=== PATIENT | male | born 1995 | race Caucasian/White ===

== ENCOUNTER 2017-07-16 09:23 | Emergency (ER) | payer MEDICAID ==
[~2017-07-16] VITALS: Ht 193 cm; Wt 86.0 kg
[~2017-07-16 09:23] MED LIST: HYDR-569 PO; NO HOME MEDS
[2017-07-16] MEDS ORDERED: AZIT-63 PO (10:17)
[2017-07-16 10:32] VITALS: BP 132/75
== END 2017-07-16 10:34 | disposition home or self-care (01) ==
LOC: ER 09:24
DX: J40 Bronchitis, not specified as acute or chronic (principal); F17.210 Nicotine dependence, cigarettes, uncomplicated; F12.90 Cannabis use, unspecified, uncomplicated; F15.90 Other stimulant use, unspecified, uncomplicated
CPT/HCPCS: 71046; 99284

== ENCOUNTER 2017-10-08 09:56 | Emergency (ER) | payer MEDICAID ==
[~2017-10-08] VITALS: Ht 188 cm; Wt 79.0 kg
[2017-10-08 11:30] LABS: BASOPHILS % (AUTO) 0.2 % (0-1); EOSINOPHILS # (AUTO) 0.4 X10'3 (0-0.9); EOSINOPHILS % (AUTO) 2.3 % (0-6); HEMOGLOBIN 14.6 g/dl (14.0-17.9); LYMPHOCYTES # (AUTO) 1.6 X10'3 (1.1-4.8); LYMPHOCYTES % (AUTO) 9.2 % (21-51); MEAN CORPUSCULAR HGB CONC 34.8 % (33.0-36.5); MEAN CORPUSCULAR VOLUME 86.2 FL (78-98); MEAN PLATELET VOLUME 8.9 FL (7.4-10.4); MONOCYTES # (AUTO) 1.3 X10'3 (0-0.9); MONOCYTES % (AUTO) 7.1 % (2-12); NEUTROPHILS # (AUTO) 14.6 X10'3 (1.8-7.7); NEUTROPHILS % (AUTO) 81.2 % (42-75); PLATELET COUNT 253 X10'3 (140-440); RED BLOOD COUNT 4.88 X10'6 (4.70-6.10); RED CELL DISTRIBUTION WIDTH 13.5 % (11.5-14.5)
[2017-10-08 11:36] LABS: CLARITY,URINE CLEAR (Clear); COLOR,URINE YELLOW (Yellow); GLUCOSE, URINE NEGATIVE (Neg); KETONES,URINE NEGATIVE (Neg); LEUKOCYTE ESTERASE ,URINE NEGATIVE (Neg); NITRITES, URINE NEGATIVE (Neg); OCCULT BLOOD,URINE NEGATIVE (Neg); PROTEIN,URINE NEGATIVE (Neg); UROBILINOGEN,URINE 0.2 E.U/dL (0.2-1.0)
[2017-10-08 11:42] LABS: UA COLLECTION TYPE CLN CATCH MIDSTREAM
[2017-10-08 11:44] LABS: ALANINE AMINOTRANSFERASE 13 U/L (12-78); ALBUMIN 3.6 G/DL (3.4-5.0); ALBUMIN/GLOBULIN RATIO 0.9 (1.1-1.5); ALKALINE PHOSPHATASE 88 IU/L (20-180); ANION GAP 9 (8-16); ASPARTATE AMINO TRANSFERASE 13 U/L (10-37); BILIRUBIN,TOTAL 0.3 MG/DL (0.1-1.0); BLOOD UREA NITROGEN 19 MG/DL (7-18); BUN/CREATININE RATIO 24.4 (5.4-32.0); CALCIUM 9.5 MG/DL (8.5-10.1); CHLORIDE 104 MMOL/L (99-107); CREATININE 0.78 MG/DL (0.60-1.10); GLUCOSE 103 MG/DL (70-104); POTASSIUM 4.9 MMOL/L (3.5-5.1); SODIUM 140 MMOL/L (135-145); TOTAL PROTEIN 7.7 G/DL (6.4-8.2); eGFR > 90 ML/MIN
[2017-10-08 13:33] LABS: URINE AMPHETAMINE SCREEN NEGATIVE (Neg); URINE BARBITUATE SCREEN NEGATIVE (Neg); URINE BENZODIAZEPINES SCREEN NEGATIVE (Neg); URINE CANNABINOID SCREEN POSITIVE (Neg); URINE COCAINE SCREEN NEGATIVE (Neg); URINE METHADONE SCREEN NEGATIVE (Neg); URINE OPIATE SCREEN NEGATIVE (Neg); URINE PHENCYCLIDINE SCREEN NEGATIVE (Neg)
[2017-10-08 14:13] VITALS: BP 122/66
[2017-10-08 14:35] LABS: MONOTEST NEGATIVE (Neg)
== END 2017-10-08 14:16 | disposition home or self-care (01) ==
LOC: ER 09:56
DX: D72.829 Elevated white blood cell count, unspecified (principal); M54.2 Cervicalgia; F17.200 Nicotine dependence, unspecified, uncomplicated; F12.10 Cannabis abuse, uncomplicated; F15.10 Other stimulant abuse, uncomplicated; Z79.899 Other long term (current) drug therapy
CPT/HCPCS: 36415; 71046; 80053; 80305; 81003; 85025; 86308; 99285

== ENCOUNTER 2018-09-05 18:39 | Emergency (ER) | payer MEDICAID ==
[~2018-09-05] VITALS: Ht 193 cm; Wt 80.9 kg
[~2018-09-05 18:39] MED LIST changes: +HYDR-4383 PO; -HYDR-569 PO
[2018-09-05 18:41] VITALS: BP 110/74
--- NOTE | 2018-09-05 21:37 | NUR ---
No response from lobby after 3 attempts to room. Call to number on file, message left expressing concern for Pt.s well being and to encourage him to return for eval. DR perdue informed.
== END 2018-09-05 21:20 | disposition left against medical advice (07) ==
LOC: ER 18:40
DX: K08.89 Other specified disorders of teeth and supporting structures (principal); Z53.21 Procedure and treatment not carried out due to patient leaving prior to being seen by health care provider

== ENCOUNTER 2018-09-14 18:48 | Emergency (ER) | payer MEDICAID ==
[~2018-09-14] VITALS: Ht 185.4 cm; Wt 83.0 kg
[2018-09-14 19:01] VITALS: BP 129/80
[2018-09-14] MEDS ORDERED: PENI500T2 PO (19:57)
[2018-09-14] MEDS ORDERED: HYDROcodone/acetaminophen 5mg/325mg tablet PO ONE (20:00)
== END 2018-09-14 20:20 | disposition home or self-care (01) ==
LOC: ER 18:48
DX: K02.9 Dental caries, unspecified (principal); F12.90 Cannabis use, unspecified, uncomplicated; F15.90 Other stimulant use, unspecified, uncomplicated; Z79.899 Other long term (current) drug therapy
CPT/HCPCS: 99282; 99283

== ENCOUNTER 2019-03-10 13:30 | Emergency (ER) | payer MEDICAID ==
[~2019-03-10] VITALS: Ht 193 cm; Wt 76.8 kg
[2019-03-10 13:37] VITALS: BP 116/83
[2019-03-10] MEDS ORDERED: proparacaine 0.5% ophthalmic drops 15ml EACHEYE ONE (14:30)
[2019-03-10] MEDS ORDERED: CIPR2.5D18 LEFTEYE (14:55)
== END 2019-03-10 15:10 | disposition home or self-care (01) ==
LOC: ER 13:31
DX: S05.02XA Injury of conjunctiva and corneal abrasion without foreign body, left eye, initial encounter (principal); F12.90 Cannabis use, unspecified, uncomplicated; F15.90 Other stimulant use, unspecified, uncomplicated; Z79.899 Other long term (current) drug therapy; W22.8XXA Striking against or struck by other objects, initial encounter; Y93.89 Activity, other specified; Y92.89 Other specified places as the place of occurrence of the external cause; Y99.8 Other external cause status
CPT/HCPCS: 99283

== ENCOUNTER 2019-05-25 04:47 | Emergency (ER) | payer MEDICAID ==
[~2019-05-25] VITALS: Ht 193 cm; Wt 79.5 kg
[2019-05-25 04:50] VITALS: BP 132/92
[2019-05-25] MEDS ORDERED: HYDR-4353 PO (05:39)
[2019-05-25] MEDS ORDERED: PENI500T2 PO (05:39)
[2019-05-25] MEDS ORDERED: HYDROcodone/acetaminophen 10/325mg tab PO ONE (05:40)
[2019-05-25] MEDS ORDERED: penicillin V potassium 500mg tablet PO ONE (05:40)
== END 2019-05-25 05:54 | disposition home or self-care (01) ==
LOC: ER 04:48
DX: K02.9 Dental caries, unspecified (principal); F12.90 Cannabis use, unspecified, uncomplicated; F15.90 Other stimulant use, unspecified, uncomplicated; F17.200 Nicotine dependence, unspecified, uncomplicated
CPT/HCPCS: 99283

== ENCOUNTER 2019-12-22 15:03 | Emergency (ER) | payer MEDICAID ==
[~2019-12-22] VITALS: Ht 193 cm; Wt 85.0 kg
[2019-12-22 15:05] VITALS: BP 125/77
== END 2019-12-22 16:05 | disposition home or self-care (01) ==
LOC: ER 15:04
DX: F15.10 Other stimulant abuse, uncomplicated (principal); R61 Generalized hyperhidrosis; R10.9 Unspecified abdominal pain; F12.90 Cannabis use, unspecified, uncomplicated; Z72.89 Other problems related to lifestyle; Z79.899 Other long term (current) drug therapy
CPT/HCPCS: 99281